=== PATIENT | male | born 1975 | race Caucasian/White ===

== ENCOUNTER 2019-05-13 07:45 | Emergency (ER) | payer OTHER, SELFPAY ==
[2019-05-13 07:46] VITALS: BP 120/72; PULSE 68; RESP 15; TEMP 36.4; O2SAT 97; BMI 26.6
--- NOTE | 2019-05-13 07:46 | ED.VIS.GEN ---
History of Present Illness Chief Complaint: Upper Extremity Injury Informant: Patient Onset: Today Timing: Continuous Current Severity: Moderate Maximum Severity: Moderate Worsened by: Motion Narrative: The patient was on his riding lawnmower today. He states that the bar had caught and he got thrown. He landed on his left shoulder. He did not strike his head or lose consciousness. Since then, he had pain in the shoulder and difficulty ranging it. He is otherwise healthy. He did take 3 ibuprofen which is helped his pain. He is right-hand dominant. Prior similar symptoms: No Recent Illness/Hospitalization: No Past Medical History - Allergies and Home Meds Allergies/Adverse Reactions: Allergies No Known Allergies Allergy (Verified 05/13/19 07:48) Primary Care Physician: Joey Valenzuela DO [STAFF PHYSICIAN] - Prior records reviewed: Yes Past Medical History: None Surgical History: no surgical history Lives: With Family Smoking Status: Never smoker Alcohol: None Drugs: None Review of Systems General: Denies: Chills, Fever, Sweats Eyes: Denies: Visual changes - bilaterally, Diplopia ENT: Denies: Rhinorrhea, Sore throat Cardiovascular: Denies: Chest pain, Palpitations Respiratory: Denies: Dyspnea, Cough, Dyspnea on exertion Gastrointestinal: Denies: Abdominal pain, Nausea, Vomiting, Diarrhea, Melena, Hematochezia Genitourinary: Denies: Dysuria, Hematuria, Frequency Musculoskeletal: Denies: Back pain, Extremity Pain Skin: Denies: Rash, Wounds Neurological: Denies: Headache, Weakness, Numbness Physical Exam Inital Vital Signs reviewed: Yes General: Well nourished, Well developed, No Acute Distress Head: Normocephalic, Atraumatic Eyes: Perrl, EOMI ENT: Moist mucous membranes, No rhinorrhea Neck: Supple, Nontender Cardiovascular: Regular rate, Regular rhythm, No murmurs Respiratory: No distress, CTA bilaterally, Chest nontender Abdomen: Soft, Nontender, Nondistended, Normal bowel sounds Back: Nontender, Normal Inspection Extremities: No edema, Tenderness - Patient has mild tenderness over the AC joint on the left. There is normal pulses. He has diminished range of motion secondary to pain. There is no step-off or deformity. Skin: Normal color, No rash Neurological: Alert, Oriented x3, Cranial nerves II-XII grossly intact, Normal Strength, Normal Sensation Psychological: Normal affect, Normal Mood Diagnostic/Tx/Re-eval Plain films obtained of the left shoulder. There is no evidence of acute fracture. It does appear as if he has a small AC joint separation. - Medical Decision Making The patient presents after a fall. He has tenderness over his left AC joint. X-rays were obtained. There is no evidence of acute fracture. I do suspect he has a grade 2 AC joint separation. He will be placed in a sling for comfort. He will be given anti-inflammatories and outpatient orthopedic follow-up. Patient is comfortable with this plan of care. He will be discharged home. ED Disposition - Plan for ED Patient: Instructions: Ac Joint Sprain Prescriptions: Naproxen [Naprosyn] 500 mg PO BID PRN #20 tab Prescription Printed Referrals: Joey Valenzuela DO [STAFF PHYSICIAN] -
--- NOTE | 2019-05-13 07:54 | RAD_ITS ---
STUDY: X-RAY - LEFT SHOULDER REASON FOR EXAM: Male, 43 years old. Pain following a fall. TECHNIQUE: 4 view(s) of the shoulder. COMPARISON: None. FINDINGS: Normal glenohumeral articulation. There is widening of the AC joint, with displacement of the clavicle, consistent with a Type III acromioclavicular joint separation. Normal acromion. Normal humeral head and visualized proximal humerus. The soft tissue structures are unremarkable. Normal visualized pulmonary apex. RAD/Shoulder min 2 Views IMPRESSION: Type III left AC joint separation. Electronically Signed: Michael Ellis, at 8:26 EDT , Service support ,
== END 2019-05-13 08:15 | disposition home or self-care (01) ==
LOC: ED 08:09
PROVIDERS: Emergency Provider Emergency Medicine; Family Provider Family Medicine; PCP Family Medicine
DX: S43.102A Unspecified dislocation of left acromioclavicular joint, initial encounter (principal); V84.5XXA Driver of special agricultural vehicle injured in nontraffic accident, initial encounter; Y93.I9 Activity, other involving external motion; Y92.9 Unspecified place or not applicable
CPT/HCPCS: 73030; 99283

== ENCOUNTER 2021-04-22 09:49 | Emergency (ER) | payer OTHER, SELFPAY ==
--- NOTE | 2021-04-22 09:45 | RAD_ITS ---
STUDY: X-RAY - LEFT KNEE REASON FOR EXAM: Left knee injury. TECHNIQUE: 2 view(s) of the knee. COMPARISON: None. FINDINGS: Normal visualized distal femur. Normal visualized proximal tibia and fibula. Normal proximal tibiofibular articulation. Normal medial femorotibial compartment. Normal lateral femorotibial compartment. Normal patellofemoral articulation. The soft tissue structures are unremarkable. RAD/Knee 1 or 2 Views IMPRESSION: No demonstrated left knee fracture. Electronically Signed: Perez Mayfield MD at 10:48 EDT Tel , Service support ,
[2021-04-22 09:49] VITALS: BP 133/91; PULSE 71; RESP 24; TEMP 36.6; O2SAT 100; BMI 32.5
--- NOTE | 2021-04-22 09:50 | RAD_ITS ---
STUDY: X-RAY - RIGHT WRIST REASON FOR EXAM: Right wrist injury. TECHNIQUE: 2 view(s) of the wrist were obtained. COMPARISON: None. FINDINGS: Normal visualized distal radius and ulna. Normal radiocarpal articulation. There is mild dorsal subluxation of the distal radioulnar articulation. Normal carpal bones. Normal carpal articulations. Normal carpometacarpal articulation of the thumb. Normal second through fifth carpometacarpal articulations. Normal visualized metacarpal bones. There is gas in the soft tissues and soft tissue swelling. RAD/Wrist 2 Views IMPRESSION: Gas in the soft tissues and soft tissue swelling. Mild dorsal subluxation of the distal radioulnar joint. Electronically Signed: Perez Mayfield MD at 10:56 EDT Tel , Service support ,
--- NOTE | 2021-04-22 09:50 | RAD_ITS ---
STUDY: X-RAY - RIGHT TIBIA AND FIBULA REASON FOR EXAM: Right lower leg injury. TECHNIQUE: 2 view(s) of the tibia and fibula were obtained. COMPARISON: None. FINDINGS: Normal visualized tibia. Normal visualized fibula. There is gas in the soft tissues of the proximal right lower leg. RAD/Tibia & Fibula 2 Views IMPRESSION: Gas in the soft tissues of the proximal right lower leg. No demonstrated right tibial or fibular fracture. Electronically Signed: Perez Mayfield MD at 10:50 EDT Tel , Service support ,
--- NOTE | 2021-04-22 09:53 | NURSING ---
0948 ETA FOR [facility] IS 10 MIN
[2021-04-22] MEDS: HYDROmorphone 1 MG/ML Syringe IV (09:55)
[2021-04-22] MEDS: Ondansetron 4 MG/2 ML Vial IV (09:55)
[2021-04-22] MEDS: 0.9% Normal Saline 1,000 ML 1000 ML IV (09:58)
[2021-04-22] MEDS: Diphth,Pertuss(Acell),Tet Vac 0.5 ML Vial IM (10:00)
[2021-04-22] MEDS: 0.9% Normal Saline 1,000 ML 150 ML IV (10:01)
[2021-04-22] MEDS: metroNIDAZOLE 500 MG/100 ML BAG 100 MG IV (10:07)
[2021-04-22] MEDS: Cefazolin 1 GM/50 ML BAG IV (10:07)
[2021-04-22 10:08] VITALS: BP 166/101; PULSE 72; RESP 24; O2SAT 100
--- NOTE | 2021-04-22 10:11 | RAD_ITS ---
STUDY: X-RAY - RIGHT KNEE REASON FOR EXAM: Right knee injury. TECHNIQUE: 2 view(s) of the knee. COMPARISON: None. FINDINGS: There is a comminuted angulated fracture of the distal femoral diaphysis with lateral displacement. Normal visualized proximal tibia and fibula. Normal proximal tibiofibular articulation. Normal medial femorotibial compartment. Normal lateral femorotibial compartment. Normal patellofemoral articulation. There is gas in the soft tissues. RAD/Knee 1 or 2 Views IMPRESSION: Comminuted angulated and displaced fracture of the distal femur. Electronically Signed: Perez Mayfield MD at 10:49 EDT Tel , Service support ,
--- NOTE | 2021-04-22 10:16 | ED.RN ---
SERAFIN SENT WITH [facility]
[2021-04-22 10:18] VITALS: BP 166/101; PULSE 72; RESP 24; O2SAT 100
--- NOTE | 2021-04-22 10:19 | EX.ED.GENINJ ---
HPI History of Present Illness Chief Complaint: Trauma Informant: patient, spouse/S.O. and EMS Narrative Narrative: 45-year-old male reportedly had a horse get away from him and he jumped and ended up getting his leg trapped in a a binder. The spikes punctured his leg a couple times. He notes lacerations to the right wrist and left forearm. There is an obvious deformity to his right knee. Unknown last tetanus. Tetanus Immunization: Unknown PFSH PFSH no medical history Home Medications NK 04/22/21 [History Last Taken Unknown] Allergy/AdvReac Type Severity Reaction Status Date / Time No Known Allergies Allergy Verified 05/13/19 07:48 no surgical history Social History (Updated 04/22/21 @ 10:[address] Josh Juares, DO) Smoking Status: Never smoker substance use type: does not use ROS ROS ED Constitutional Constitutional ED: Denies chills or weight loss Eyes Eyes: Denies change in vision or diplopia ENT ENT ED: Denies ear pain, rhinorrhea or sore throat Cardiovascular Cardiovascular: Denies chest pain, orthopnea, palpitations or racing heartbeat Respiratory/Chest Respiratory/Chest: Denies cough, dyspnea or orthopnea Gastrointestinal Gastrointestinal: Denies abdominal pain, diarrhea, nausea or vomiting Genitourinary Genitourinary ED: Denies dysuria, hematuria or urinary frequency Musculoskeletal Musculoskeletal: Reports other Details: Right knee pain ; Denies arthralgias or myalgias Integumentary Reports other Details: Puncture wounds and lacerations ; Denies abscess or rash Neurologic Neurologic: Denies headache(s) or weakness Psychiatric Psychiatric: Denies anxiety, depression, suicidal ideation or suicidal thoughts Endocrine Endocrinology: Denies polydipsia, polyphagia or polyuria Allergic/Immunologic Allergic/Immunologic ED: Denies mouth swelling, tongue swelling or urticaria EXAM Physical Exam Const Vital Signs: 04/22/21 09:49 04/22/21 10:08 Temperature 97.9 F Temperature Source Temporal Pulse Rate 71 72 Respiratory Rate 24 H 24 H Blood Pressure 133/91 H 166/101 H Blood Pressure Mean 105 122 Pulse Ox 100 100 Oxygen Delivery Method Room Air Room Air Positive well nourished and well developed General Appearance ED: well developed HEENT Reports normocephalic, head/scalp atraumatic and moist mucous membranes Eyes PERRL and EOMs intact bilaterally Neck no lymphadenopathy, supple and no JVD Resp normal respiratory effort and clear to auscultation bilaterally Cardio regular rate, regular rhythm and no murmurs GI normal to inspection, nondistended, normoactive bowel sounds and non-tender Palpation: soft Back/Spine no CVA tenderness and normal ROM Extremity Extremity Narrative: Obvious deformity to the right knee. He has sensation and movement distally. There are palpable dorsalis pedis pulse. The wound show probable farm/soil contaminants. General Extremety ED: Yes deformity; Negative for edema General Extremity: deformity; Negative for edema Neuro oriented x3 and CN's II-XII intact bilaterally Sensorium / Orientation: alert Motor Exam: strength 5/5 throughout Psych mental status grossly normal Mood & Affect: Negative for depressed or tearful Skin Skin Narrative: There are puncture wounds to the right calf and right medial thigh. There is 1-1/2 cm laceration to the right wrist and a 1 cm laceration to the left forearm. MDM MDM MDM Narrative Medical decision making narrative: X-rays were obtained which on my interpretation reveal a comminuted displaced distal femur fracture. Antibiotics were ordered. Patient received tetanus update Dilaudid and Zofran. Sanket Beasley had previously been called to the scene but diverted to the hospital. He has been accepted to [facility]. Discharge Plan Triage Chief Complaint: Trauma ED Provider: Josh Juares Dx/Rx/DC Orders Clinical Impression: Open fracture of right distal femur, Multiple puncture wounds, Laceration of right wrist, Laceration of forearm, left Prescriptions: No Action NK RF: 0 Primary Care Provider: Florentino Craft Referrals: Florentino Craft DO [Primary Care Provider] - Disposition Disposition: Acute Care Hospital [facility]
== END 2021-04-22 10:18 | disposition short-term general hospital (02) ==
PROVIDERS: Emergency Provider Emergency Medicine; PCP Family Medicine
DX: S72.401A Unspecified fracture of lower end of right femur, initial encounter for closed fracture (principal); S61.511A Laceration without foreign body of right wrist, initial encounter; S51.812A Laceration without foreign body of left forearm, initial encounter; S81.831A Puncture wound without foreign body, right lower leg, initial encounter; S71.132A Puncture wound without foreign body, left thigh, initial encounter; Z23 Encounter for immunization; W23.0XXA Caught, crushed, jammed, or pinched between moving objects, initial encounter; Y93.K9 Activity, other involving animal care; Y92.9 Unspecified place or not applicable; Y99.9 Unspecified external cause status
CPT/HCPCS: 73100; 73560; 73590; 90715; 96372; 96374; 96375; 99285; J7050; J2405